=== PATIENT | female | born 1990 | race Asian ===

== ENCOUNTER → 2023-08-06 13:29 | Outpatient (REF) | payer BC, SELFPAY | LOC: PNTC 13:29 | PROVIDERS: ATTENDING PHYSICIAN Obstetrics & Gynecology | DX: O98.519 Other viral diseases complicating pregnancy, unspecified trimester (principal); U07.1 COVID-19 | CPT/HCPCS: 76816 ==

== ENCOUNTER → 2023-09-24 17:08 | Outpatient (REF) | payer BC, SELFPAY | LOC: PNTC 17:08 | PROVIDERS: ATTENDING PHYSICIAN Obstetrics & Gynecology | DX: O98.519 Other viral diseases complicating pregnancy, unspecified trimester (principal) | CPT/HCPCS: 76816 ==

== ENCOUNTER 2023-11-01 23:27 | Inpatient (IN) | payer BC, SELFPAY ==
[2023-11-02 00:10] VITALS: BP 116/65; BMI 28.9
[2023-11-02 01:59] LABS: % Basophils 0.3 % (0-2); % Eosinophils 0.6 % (0-6); % Immature Granulocytes 0.7 % (0-0.5); % Lymphocytes 23.9 % (20.5-51.1); % Monocytes 6.8 % (1.7-9.3); % Neutrophils 67.7 % (42.2-75.2); Absolute Eosinophils 0.1 10^3/uL (0-0.7); Absolute Immature Granulocytes 0.1 10^3/uL (0-0.05); Absolute Lymphocytes 2.8 10^3/uL (1.2-3.4); Absolute Monocytes 0.8 10^3/uL (0.1-0.6); Absolute Neutrophils 7.9 10^3/uL (1.4-6.5); Hematocrit 36.3 % (37.0-47.0); Hemoglobin 13.3 g/dL (12.0-16.0); Mean Corp Hgb Conc. 36.6 g/dL (33.0-37.0); Mean Corpuscular Hgb 31.9 pg (27.0-31.0); Mean Corpuscular Volume 87.1 fL (81.0-99.0); Mean Platelet Volume 10.3 fL (7.4-10.4); Nucleated Red Blood Cells % 0 %; Platelet Count 211 10^3/uL (130-400); Red Blood Cell Count 4.17 10^6/uL (4.20-5.40); Red Cell Dist. Width 12.9 % (11.5-14.5); White Blood Cell Count 11.7 10^3/uL (4.8-10.8)
[2023-11-02] MEDS: FENTANYL/BUPIVACAINE 100 EPIDURAL ×2 (08:29→15:39)
[2023-11-02] MEDS: SUBLIMAZE 100 MCG EPIDURAL (08:29)
[2023-11-02] MEDS: PITOCIN 30 UNITS/NSS 500 ML IV (08:52)
[2023-11-02] MEDS: PRENATAL PLUS PO (18:38)
[2023-11-02] MEDS: MOTRIN 600 MG PO (18:46)
[2023-11-03] MEDS: TYLENOL 650 MG PO ×5 (00:01→22:05)
[2023-11-03] MEDS: SENOKOT-S 1 TABLET PO ×2 (03:58→22:05)
[2023-11-03] MEDS: MOTRIN 600 MG PO ×4 (03:58→22:05)
[2023-11-03 05:48] LABS: Hematocrit 32.3 % (37.0-47.0); Hemoglobin 11.5 g/dL (12.0-16.0)
[2023-11-03] MEDS: PRENATAL PLUS PO (18:24)
[2023-11-04] MEDS: MOTRIN 600 MG PO ×2 (04:48→10:55)
[2023-11-04] MEDS: TYLENOL 650 MG PO ×2 (04:48→10:55)
[2023-11-04] MEDS: PRENATAL PLUS 1 TABLET PO (09:47)
[2023-11-06 15:35] LABS: Syphilis/T. pallidum Ab Reflex Negative (Negative)
== END 2023-11-04 15:25 | disposition home or self-care (01) | DRG 807 ==
LOC: LDRP 23:27
PROVIDERS: Obstetrics & Gynecology; ADMITTING PHYSICIAN Obstetrics & Gynecology; FAMILY PHYSICIAN Family Medicine
PROC: 10E0XZZ Delivery of Products of Conception, External Approach (ICD-10-PCS; 2023-11-02)
PROC: 0KQM0ZZ Repair Perineum Muscle, Open Approach (ICD-10-PCS; 2023-11-02)
DX: O69.81X0 Labor and delivery complicated by cord around neck, without compression, not applicable or unspecified (principal); Z37.0 Single live birth; O76 Abnormality in fetal heart rate and rhythm complicating labor and delivery; O70.1 Second degree perineal laceration during delivery; Z3A.38 38 weeks gestation of pregnancy
CPT/HCPCS: 36415; 85014; 85018; 85025; 86780; 86850; 86900; 86901

== ENCOUNTER → 2024-04-03 15:11 | Outpatient (REF) | payer BC, SELFPAY | LOC: HWRAD 15:11 | PROVIDERS: ATTENDING PHYSICIAN Nurse Practitioner Family | DX: R10.32 Left lower quadrant pain (principal); R39.15 Urgency of urination; R31.29 Other microscopic hematuria; Z87.442 Personal history of urinary calculi | CPT/HCPCS: 74176 ==